=== PATIENT | female | born 1970 | race Caucasian/White ===

== ENCOUNTER 2017-06-09 14:35 | Emergency (ER) | payer BC ==
[~2017-06-09] VITALS: Ht 162.6 cm; Wt 215.0 kg
[~2017-06-09 14:35] MED LIST: HYDR-3498 PO; LACTINEX PO; LD2VS100B MM; RANI150T9 PO
[2017-06-09 15:00] VITALS: Ht 162.6 cm; Wt 215.0 kg
[2017-06-09] MEDS ORDERED: METOCLOPRAMIDE 10 MG INJ IV STA (15:12)
[2017-06-09] MEDS ORDERED: SOD CHLORIDE 0.9% 1,000 ML IV STA (15:12)
--- NOTE | 2017-06-09 15:27 | ERA ---
ER Documentation Chief Complaint Date/Time DATE: 06/09/17 TIME: 15:16 Chief Complaint HPI This is a 46-year-old female with a past medical history of vertigo, chronic constipation for which she does colon cleanses, HTN, HLD who is presenting with acute onset dizziness, feeling like the room is spinning around her, exacerbated by looking or turning her head to the right, associated with nausea. She was nauseated at home and did try to vomit, but she is not able to do so. The patient has no history of heart attack or stroke. She does not have a history of bleeding or clotting disorders. The patient's symptoms started 2-3 hours ago, and have not improved. The patient has been doing these colon cleanses for a few weeks now to help with her constipation. She does not endorse diarrhea. She does not endorse feeling sick recently. She has had no fever or chills. She is actually up and felt totally normal prior to onset of symptoms. She made breakfast for the family and was drinking coffee on the couch when things started. She denies chest pain or trouble breathing. She does not have any abdominal pain. She does not have any focal deficits, but she is reluctant to turn her head to the right. ROS All systems reviewed and are negative except as per history of present illness. Medications Home Meds Reported Medications Metoclopramide* (Reglan*) 5 Mg Tablet, 5 MG PO Q6H Y for NAUSEA AND OR VOMITING , TAB 06/09/17 Ergocalciferol (Vitamin D2) (VITAMIN D2) 50,000 Unit Capsule, 85294 UNIT PO WEEKLY, CAP 06/09/17 Paroxetine Hcl* (Paxil*) 20 Mg Tablet, 20 MG PO DAILY, TAB 06/09/17 Atorvastatin* (Atorvastatin*) 40 Mg Tablet, 40 MG PO QHS, #30 TAB 06/09/17 Gemfibrozil* (Lopid*) 600 Mg Tablet, 600 MG PO BID, TAB 06/09/17 Discontinued Reported Medications Lactobacillus Acidophilus* (Lactinex*) 1 Tab Chew, 1 TAB PO BID, TAB 11/05/15 Discontinued Scripts Hydrocodone Bit-Acetaminophen* (Honeydew*) 5-325 Mg Tab, 2 TAB PO Q4H Y for PAIN, # 14 TAB Prov:MARILU CHAIREZ DO 11/05/15 Ranitidine Hcl* (Zantac*) 150 Mg Tablet, 150 MG PO BID, #60 TAB Prov:MARILU CHAIREZ DO 11/05/15 Lidocaine Viscous 2%* (Lidocaine Viscous 2%*) 100 Ml Soln, 15 ML MM as needed for pain, #120 ML Prov:MARILU CHAIREZ DO 11/05/15 Allergies Allergies: Coded Allergies: No Known Allergy (Unverified , 11/05/15) PMhx/Soc History of Surgery: Yes () Hx Miscellaneous Medical Probl: Yes (Vertigo) Hx Alcohol Use: Yes (socially) Hx Substance Use: No Hx Tobacco Use: Yes FmHx Family History: No diabetes Physical Exam Vitals Vital Signs Date Time Temp Pulse Resp B/P Pulse Ox O2 Delivery O2 Flow Rate FiO2 06/09/17 15:00 98.5 81 16 132/82 99 Physical Exam Const: In mild emotional distress Head: Atraumatic Eyes: Normal Conjunctiva, EOMI, nystagmus to the right, exacerbation of symptoms with right gaze ENT: Normal External Ears, Nose and Mouth. Neck: Full range of motion..~ No meningismus. Resp: Clear to auscultation bilaterally Cardio: Regular rate and rhythm, no murmurs Abd: Obese, soft, non tender, non distended. Normal bowel sounds Skin: No petechiae or rashes Back: No midline or flank tenderness Ext: No cyanosis, or edema Neur: Awake and alert, Normal strength and sensation to face and extremities Psych: Anxious appearing Result Diagram: 06/09/17 [facility] 06/09/17 1515 Results 24 hrs Laboratory Tests Test 06/09/17 15:15 06/09/17 16:40 Sodium Level 137mmol/L Potassium Level 4.0mmol/L Chloride Level 102mmol/L Carbon Dioxide Level 25mmol/L Anion Gap 14 Blood Urea Nitrogen 14mg/dl Creatinine 0.64mg/dl Glucose Level 99mg/dl Calcium Level 9.1mg/dl White Blood Count 7.710^3/ul Red Blood Count 4.3710^6/ul Hemoglobin 13.2g/dl Hematocrit 39.4% Mean Corpuscular Volume 90.2fl Mean Corpuscular Hemoglobin 30.2pg Mean Corpuscular Hemoglobin Concent 33.5g/dl Red Cell Distribution Width 13.0% Platelet Count 92380^3/UL Mean Platelet Volume 10.7fl Neutrophils % 53.8% Lymphocytes % 34.2% Monocytes % 7.8% Eosinophils % 3.5% Basophils % 0.4% Nucleated Red Blood Cells % 0.0/100WBC Neutrophils # (Manual) 4.210^3/ul Lymphocytes # 2.610^3/ul Monocytes # 0.610^3/ul Eosinophils # 0.310^3/ul Basophils # 0.010^3/ul Nucleated Red Blood Cells # 0.010^3/ul Current Medications Medications (Trade) Dose Ordered Sig/[place] Route PRN Reason Start Time Stop Time Status Last Admin Dose Admin Sodium Chloride (NS) 1,000 ml @ 1,000 mls/hr Q1H STAT IV 06/09/17 15:12 06/09/17 16:11 DC 06/09/17 15:40 Metoclopramide HCl (Reglan) 10 mg ONCE STAT IV 06/09/17 15:12 06/09/17 15:15 DC 06/09/17 15:41 Diphenhydramine HCl (Benadryl) 25 mg ONCE ONCE IV 06/09/17 15:30 06/09/17 15:31 DC 06/09/17 15:41 Meclizine HCl (Antivert) 25 mg ONCE ONCE PO 06/09/17 15:30 06/09/17 15:31 DC 06/09/17 15:42 Procedures/MDM The patient's presenting with dizziness. She does have a history of vertigo, and her symptoms are consistent with vertigo. However, she reports that they are worse than normal. A neurologic workup will be performed as well. Her neurologic exam is reassuring aside from exacerbation of symptoms with right gaze and nystagmus, which can be also consistent with vertigo. Patient's blood work was obtained and reviewed. The patient's CBC & BMP were unremarkable. The patient's CTof the head did not reveal any acute intracranial abnormality. EKG read by me: Rate/Rhythm: Regular rate and rhythm at a rate of 79 Intervals: Normal [place]: Normal Impression: No evidence of ischemia or arrhythmia The patient was given IV fluids, Reglan, Benadryl and meclizine with improvement of symptoms. Given the reassuring assessment, I do feel that this is likely associated with her known history of vertigo. She will be given a prescription for meclizine. The patient does need to follow-up with her primary care doctor in 1-2 days for reevaluation. She will be given precautions with which to return to the emergency department. Departure Diagnosis: Primary Impression: Dizziness Additional Impression: Nausea Condition: Stable Patient Instructions: Dizziness, Unk Cause, Dizziness (Vertigo) and Balance Problems: Ensuring Your Safety Additional Instructions: Your symptoms resolved after treatment in the hospital. He will be given a prescription for meclizine. Please take as prescribed. Is very important to follow-up with your primary doctor and 1-3 days for reevaluation. It may also be prudent to follow-up with an ear nose throat doctor. Please speak to your primary care physician about this. Thank you for for coming to [facility] for your care today. Please ask your nurse or provider if you have questions about your care today and do not leave until all your questions have been answered. Please use any medications given as directed and follow-up with your doctor (or the doctor you were referred to) in the next 2-3 days. If you do not have a primary care doctor you may follow up at the [facility] (listed below). You may also use motrin and tylenol as needed for fever and/or pain unless instructed otherwise by your provider or nurse. Indications for more urgent follow-up have been discussed, but you may return to the Emergency Department at ANY time for any worrisome or worsening symptoms. If you have abdominal pain, please know that no test or exam you received is perfect and you should follow up within 8 hours for continued pain. If you had any imaging studies today, such as an X-Ray or CT Scan, these studies will be reviewed later by a radiologist. You will be called if there are important findings that were not identified today, so make sure the contact information you provided at registration is correct. If you received any narcotic pain control medicine today, such as Vicodin, Morphine or Dilaudid, your coordination and judgment may be affected for a number of hours. Please do not drive or operate heavy machinery, and you may want someone to assist you at home. If you were given a prescription for narcotic medication, be aware that it is very addictive- use sparingly and only if necessary. CHIN MOFFETT MD Jun 09, 2017 15:27
[2017-06-09] MEDS ORDERED: DIPHENHYDRAMINE 50 MG INJ IV ONE (15:30)
[2017-06-09] MEDS ORDERED: MECLIZINE 12.5 MG TAB PO ONE (15:30)
[2017-06-09 16:01] LABS: CALCIUM 9.1 mg/dl (8.4-10.2); CREATININE 0.64 mg/dl (0.44-1.00)
[2017-06-09] MEDS ORDERED: ATOR40TA68 PO (16:12)
[2017-06-09] MEDS ORDERED: PARO20TA58 PO (16:12)
[2017-06-09] MEDS ORDERED: GEMF600T PO (16:12)
[2017-06-09] MEDS ORDERED: ERGO500037 PO (16:13)
[2017-06-09] MEDS ORDERED: METO5TAB58 PO (16:13)
--- NOTE | 2017-06-09 16:29 | RADRPT ---
PROCEDURE: CT Brain without contrast. CLINICAL INDICATION: Headache. TECHNIQUE: A CT of the brain without contrast was performed utilizing axial sections from the skul l base through the vertex. The patient was scanned without intravenous contrast enhancement. Sagitta l and coronal reformatted images were obtained using the data from the axial images. Total exam DLP is 720.23 mGy-cm. CTDIvol is 43.27 mGy. One or more of the following dose reduction techniques we re used: Automated exposure control, adjustment of the mA and/or kV according to patient size, use o f iterative reconstruction technique. COMPARISON: None available FINDINGS: There is normal rivera-white matter differentiation. The ventricles and cisterns are normal. There is no intracranial hemorrhage or space-occupying lesion. There is no skull fracture or lytic lesion. IMPRESSION: 1. Normal noncontrast CT scan of the brain. RPTAT: QQ .Juan Hamilton MD, MD Date Time Electronically viewed and signed by .Juan Hamilton MD, MD on 06/09/2017 16:29 .R/
[2017-06-09 16:52] LABS: BASOPHILS % 0.4 % (0.0-2.0); EOSINOPHILS # 0.3 10^3/ul (0.0-0.5); EOSINOPHILS % 3.5 % (0.0-7.0); HEMATOCRIT 39.4 % (37.0-47.0); HEMOGLOBIN 13.2 g/dl (12.0-16.0); LYMPHOCYTES # 2.6 10^3/ul (0.8-2.9); LYMPHOCYTES % 34.2 % (15.0-51.0); MEAN CORPUSCULAR HEMOGLOBIN 30.2 pg (29.0-33.0); MEAN CORPUSCULAR HGB CONC 33.5 g/dl (32.0-37.0); MEAN CORPUSCULAR VOLUME 90.2 fl (82.0-101.0); MEAN PLATELET VOLUME 10.7 fl (7.4-10.4); MONOCYTE # 0.6 10^3/ul (0.3-0.9); MONOCYTES % 7.8 % (0.0-11.0); NEUTROPHILS % 53.8 % (39.0-77.0); PLATELET COUNT 288 10^3/UL (140-415); RED BLOOD COUNT 4.37 10^6/ul (4.20-5.40); WHITE BLOOD COUNT 7.7 10^3/ul (4.8-10.8)
[2017-06-09] MEDS ORDERED: MECL12.574 PO (17:36)
[2017-06-09 17:55] VITALS: BP 128/70; PULSE 70; RESP 20; TEMP 98.6
== END 2017-06-09 18:02 | disposition home or self-care (01) ==
LOC: E/R 14:35
DX: R42 Dizziness and giddiness (principal); R11.0 Nausea; I10 Essential (primary) hypertension; R40.2142 Coma scale, eyes open, spontaneous, at arrival to emergency department; R40.2252 Coma scale, best verbal response, oriented, at arrival to emergency department; R40.2362 Coma scale, best motor response, obeys commands, at arrival to emergency department; Z87.891 Personal history of nicotine dependence
CPT/HCPCS: 36415; 70450; 80048; 85025; 93005; 96374; 96375; J1200; J2765; J7030; Z7502; Z7610